=== PATIENT | male | born 1980 | race Caucasian/White ===

== ENCOUNTER 2017-04-01 10:34 | Emergency (ER) | payer SELFPAY, OTHER ==
[2017-04-01] MEDS: GLUCAGON 1 MG INJ IV (13:18)
[2017-04-01] MEDS: ONDANSETRON 4 MG INJ IV (13:18)
[2017-04-01] MEDS: BARIUM SULFATE 135 ML (E-Z HD) PO ×2 (13:28→14:32)
[2017-04-01 13:47] LABS: ADD MAN DIFF? NO
[2017-04-01 13:50] LABS: WHITE BLOOD COUNT 13.3 10^3/ul (4.8-10.8)
[2017-04-01 13:50] LABS: BASOPHIL # 0.1 10^3/ul (0.0-0.1); BASOPHILS % 0.5 % (0.0-2.0); EOSINOPHILS # 0.3 10^3/ul (0.0-0.5); EOSINOPHILS % 1.9 % (0.0-7.0); LYMPHOCYTES # 2.4 10^3/ul (0.8-2.9); LYMPHOCYTES % 17.9 % (15.0-51.0); MEAN CORPUSCULAR HEMOGLOBIN 27.6 pg (29.0-33.0); MEAN CORPUSCULAR HGB CONC 33.3 g/dl (32.0-37.0); MEAN CORPUSCULAR VOLUME 82.8 fl (82.0-101.0); MEAN PLATELET VOLUME 9.2 fl (7.4-10.4); MONOCYTE # 0.8 10^3/ul (0.3-0.9); NEUTROPHIL # 9.7 10^3/ul (1.6-7.5); NEUTROPHILS % 73.1 % (39.0-77.0); PLATELET COUNT 396 10^3/UL (140-415); RED CELL DISTRIBUTION WIDTH 13.2 % (11.5-14.5)
[2017-04-01 14:13] LABS: ALANINE AMINOTRANSFERASE 37 IU/L (13-69); ALBUMIN 5.1 g/dl (3.3-4.9); ALBUMIN/GLOBULIN RATIO 1.37; ALKALINE PHOSPHATASE 85 IU/L (42-121); ASPARTATE AMINO TRANSFERASE 27 IU/L (15-46); BILIRUBIN,INDIRECT 0.3 mg/dl (0-1.1); BILIRUBIN,TOTAL 0.3 mg/dl (0.2-1.3); BLOOD UREA NITROGEN 12 mg/dl (7-20); CALCIUM 9.7 mg/dl (8.4-10.2); CARBON DIOXIDE 23 mmol/L (21-31); CHLORIDE 106 mmol/L (97-110); CREATININE 1.01 mg/dl (0.61-1.24); GLUCOSE 103 mg/dl (70-220); LIPASE 64 U/L (23-300); POTASSIUM 4.2 mmol/L (3.5-5.1); TOTAL PROTEIN 8.8 g/dl (6.1-8.1)
[2017-04-01 14:28] LABS: ANION GAP 20 (8-16)
[2017-04-01 14:35] LABS: SODIUM 145 mmol/L (135-144)
== END 2017-04-01 15:29 | disposition home or self-care (01) ==
LOC: FTE 10:34
DX: R13.10 Dysphagia, unspecified (principal); K22.9 Disease of esophagus, unspecified
CPT/HCPCS: 36415; 74230; 80053; 83690; 85025; 96374; 96375; 99284-25